=== PATIENT | female | born 1990 | race Caucasian/White ===

== ENCOUNTER 2016-12-13 19:22 | Emergency (ER) | payer BC ==
[~2016-12-13] VITALS: Ht 160 cm; Wt 49.1 kg
[~2016-12-13 19:22] MED LIST: NORCO 325 MG-51 TAB PO
[2016-12-13 19:29] VITALS: BP 135/80; TEMP 99.3
[2016-12-13 20:32] VITALS: PULSE 96
== END 2016-12-13 20:33 | disposition home or self-care (01) ==
LOC: COL.ER 19:22
DX: J20.8 Acute bronchitis due to other specified organisms (principal)

== ENCOUNTER 2024-02-01 18:54 | Emergency (ER) | payer OTHER ==
[~2024-02-01] VITALS: Ht 160 cm; Wt 56.8 kg
[2024-02-01 19:07] VITALS: TEMP 98.3
[2024-02-01] MEDS ORDERED: NS 1,000 ML IV ONE (21:30)
[2024-02-01] MEDS ORDERED: Ondansetron 4 MG/2 ML VIAL IV ONE (21:30)
[2024-02-01] MEDS ORDERED: ZOFRAN ODT4 MG PO (22:28)
[2024-02-01] MEDS ORDERED: Home Promethazine 25 MG #2 TAB/PACK PO ONE (22:30)
[2024-02-01] MEDS ORDERED: Home Ondansetron ODT 4 MG #2 ODT/PACK PO ONE (22:30)
[2024-02-01 22:50] VITALS: BP 118/77; PULSE 72
== END 2024-02-01 22:50 | disposition home or self-care (01) ==
LOC: COL.ER 18:54
DX: O98.811 Other maternal infectious and parasitic diseases complicating pregnancy, first trimester (principal); J10.1 Influenza due to other identified influenza virus with other respiratory manifestations; Z3A.12 12 weeks gestation of pregnancy
CPT/HCPCS: J2405; J7030

== ENCOUNTER 2024-06-09 22:31 | Outpatient (CLI) | payer OTHER ==
[~2024-06-09] VITALS: Ht 160 cm; Wt 70.5 kg
[~2024-06-09 22:31] MED LIST changes: +ZOFRAN ODT4 MG PO
[2024-06-09 23:00] VITALS: BP 117/82; PULSE 85; TEMP 98.1
[2024-06-09] MEDS ORDERED: LR 1,000 ML IV PRN (23:00)
--- NOTE | 2024-06-09 23:15 | NUR ---
DR GARCIA HERE ON THE UNIT. INFORMED OF PT'S COMPLAINTS OF DECREASED MOVEMENT. FEELS LIKE HER PULSE IS FAST. BP IS 117/82, AND 110/73, HR 100 THEN CAME DOWN TO 90 AFTER SHE HEARD THE BABIES HEART RATE. SHE HAS H/O PRE-E, ADHD AND ANXIETY. PT IS VERY ANXIOUS AT THIS TIME BECAUSE SHE IS WORRIED THE BABY IS NOT MOVING. PT TO BED, PLACED MONITORS ON ABD. BABY IS KICKING AND FELT BY THIS NURSE. ASKED PT IF SHE FELT THOSE KICKS, PT SAID NO. FHR 155-160, ACCELS, NO DECELS, PT DENIES FEELING CTX'S. BABY KICKING ON THE MONITOR IS AUDIBLE. AFTER 5 MINS PT STATES SHE CAN FEEL THE BABY KICKING NOW. CXT'S 3-4 MINS. PT DENIES FEELING THEM.
--- NOTE | 2024-06-09 23:50 | NUR ---
PT GIVEN DISCHARGE INSTRUCTIONS WRITTEN AND VERBAL. PT STATES SHE FEELS MUCH BETTER NOW AND HER ANXIETY HAS DECREASED. SHE LEFT THE UNIT AMB OUT PT NOT IN LABOR.
== END 2024-06-09 23:50 | disposition home or self-care (01) ==
LOC: LDRO 22:31 → LDR 22:40 → LDRO 23:50
DX: O36.8130 Decreased fetal movements, third trimester, not applicable or unspecified (principal); Z3A.30 30 weeks gestation of pregnancy
CPT/HCPCS: OP

== ENCOUNTER 2024-07-11 18:01 | Outpatient (CLI) | payer OTHER ==
[~2024-07-11] VITALS: Ht 160 cm; Wt 71.4 kg
--- NOTE | 2024-07-11 18:15 | NUR ---
PT AMBULATORY TO UNIT. REPORTS INCREASED BP AT WORK AND SHMUEL GOMEZ 2-5MIN APART. NO LOF, NO VAGINAL BLEEDING, POSITIVE MOVEMENT. SVE CL/TH/HIGH.
[2024-07-11 18:20] VITALS: BP 130/79; PULSE 101
--- NOTE | 2024-07-11 18:20 | NUR ---
REPORT RECEIVED. PT WAS CHECKED BY DAY NURSE WHO REPORTS CLOSED/THICK/HIGH.
[2024-07-11] MEDS ORDERED: PRENATAL TABLET PO (18:21)
[2024-07-11] MEDS ORDERED: PEPCID 20MG TAB20 MG PO (18:21)
[2024-07-11] MEDS ORDERED: ASPIRIN 81M81 MG/TA2 PO (18:22)
[2024-07-11] MEDS ORDERED: ZOLOFT 50MG50 MG PO (18:22)
[2024-07-11 18:35] VITALS: BP 123/85; PULSE 99
[2024-07-11] MEDS ORDERED: LR 1,000 ML IV PRN (18:45)
[2024-07-11 18:50] VITALS: BP 125/84; PULSE 100
[2024-07-11 19:05] VITALS: BP 133/88; PULSE 99
[2024-07-11 19:10] VITALS: TEMP 98.1
[2024-07-11 19:25] VITALS: BP 121/86; PULSE 106
--- NOTE | 2024-07-11 19:48 | NUR ---
0-REVIEWED ALL DC INSTRUCTIONS WITH PT. ENCOURAGED HER TO CALL HER MD, OB UNIT, OR COME IN IF SHE HAD CTX INCREASING IN FREQUENCY AND INTENSITY, LOF, VAGINAL BLEEDING, DECREASED MOVEMENT. OR CONCERNS ABOUT INCREASING BP, HEADACHES, VISUAL CHANGES. PT VERB UNDERSTANDING, COPIES GIVEN. DISMISSED HOME AMBULATORY.
== END 2024-07-11 19:40 | disposition home or self-care (01) ==
LOC: LDRO 18:01
DX: O47.03 False labor before 37 completed weeks of gestation, third trimester (principal); O16.3 Unspecified maternal hypertension, third trimester; Z3A.35 35 weeks gestation of pregnancy

== ENCOUNTER 2024-08-08 02:26 | Inpatient (IN) | payer OTHER ==
[~2024-08-08] VITALS: Ht 160 cm; Wt 75.0 kg
[2024-08-08] VITALS (31 sets, daily range): BP systolic 117–144; BP diastolic 70–92; PULSE 75–139; TEMP 97.5–98.6
[~2024-08-08 02:26] MED LIST changes: +ASPIRIN 81M81 MG/TA2 PO; +PEPCID 20MG TAB20 MG PO; +PRENATAL TABLET PO; +ZOLOFT 50MG50 MG PO
--- NOTE | 2024-08-08 02:35 | NUR ---
PT TO UNIT AMBUALTORY WITH SPOUSE WITH COMPLAINTS OF CTX AND POSSIBLE SROM. PT IS A G4L2 AT 39.0 WKS. PT ORIENTED TO ROOM, CHANGED INTO GOWN. DENIES VAGINAL BLEEDING, STATES THAT SHE FEELS LIKE SHE IS CONSTANTLY "PEEING" DOWN HER LEGS. STATES GOOD MOVEMENT. EFM X2 APPLIED, AMNIOSWAB X3 NEGATIVE, SVE OF 3-4/60/-3. VS OBTAINED. WILL CONTINUE TO MONITOR.
[2024-08-08] MEDS ORDERED: LR 1,000 ML IV PRN (04:30)
[2024-08-08] MEDS ORDERED: LR 1,000 ML IV SCH (04:30)
[2024-08-08] MEDS ORDERED: LR & Oxytocin 500 ML IV SCH ×2 (04:30→10:00)
[2024-08-08 04:48] LABS: BASO % 0.4 % (0.0-2.0); EOS # 0.1 K/mm3 (0.0-0.7); GRAN # 8.2 K/mm3 (1.4-6.5); GRAN % 72.3 % (42.2-75.2); HEMATOCRIT 38.9 % (37.0-47.0); HEMOGLOBIN 12.9 g/dl (12.5-16.0); LYMPH # 1.9 K/mm3 (1.2-3.4); LYMPH % 16.5 % (20.0-51.0); MEAN CELL VOLUME 90 fl (80.0-100.0); MEAN CORPUSCULAR HEMOGLOBIN 30 pg (27-31); MEAN CORPUSCULAR HGB CONC 33 g/dl (33.0-37.0); MEAN PLATELET VOLUME 10.3 fl (7.4-10.4); MONO % 8.7 % (1.7-9.3); PLATELET COUNT 225 K/mm3 (130-400); RED BLOOD COUNT 4.31 M/mm3 (4.10-5.30); REDCELL DISTRIBUTION WIDTH-CV 12.9 % (11.5-14.5)
[2024-08-08] MEDS ORDERED: ROPivacaine PF 0.2% 200 ML IV ONE (04:57)
[2024-08-08] MEDS ORDERED: diphenhydrAMINE 50 MG/ML 1 ML VIAL IV PRN (05:00)
[2024-08-08] MEDS ORDERED: Ondansetron 4 MG/2 ML VIAL IV PRN (05:00)
[2024-08-08] MEDS ORDERED: Naloxone 0.4 MG/ML VIAL IV PRN ×2 (05:00→10:15)
[2024-08-08] MEDS ORDERED: ePHEDrine 50 MG/10 ML VIAL IV PRN (05:00)
[2024-08-08] MEDS ORDERED: diphenhydrAMINE 25 MG CAP PO PRN (05:00)
--- NOTE | 2024-08-08 05:00 | NUR ---
0445- PT ASSISTED TO SITTING AT SIDE OF BED FOR EPIDURAL PLACEMENT, Albin DOZIER CRNA IN ROOM. RISKS AND BENEFITS DISCUSSED, PT AGREES TO EPIDURAL PLACEMENT. PULSE OX IN PLACE, BP SET TO EVERY 5 MINUTES. 0451- SINGLE SHOT GIVEN BY Albin HAYWARD CRNA, PT TOLERATED WELL. 0458- PT REPOSITIONED TO SEMIFOWLERS FOLLOWING EPIDURAL. PT STATES THAT SHE ALREADY FEELING SOME RELIEF DURING CONTRACTIONS.
[2024-08-08 05:03] LABS: ALBUMIN 2.9 g/dL (3.5-5.0); BILIRUBIN,TOTAL 0.4 mg/dL (0.2-1.2); CALCIUM 9.4 mg/dL (8.4-10.2); CREATININE, serum 0.63 mg/dL (0.57-1.11); POTASSIUM 4.1 mEq/L (3.5-4.5); TOTAL PROTEIN 6.1 g/dl (6.2-8.1)
[2024-08-08] MEDS ORDERED: PROTONIX20 MG PO (05:55)
[2024-08-08] MEDS ORDERED: TYLENOL PM EXTR1 TA1 PO (05:56)
[2024-08-08] MEDS ORDERED: STOOL SOFTENER100 M2 PO (05:57)
--- NOTE | 2024-08-08 06:33 | NUR ---
RN AT BEDSIDE, PT SLEEPING. LR CHECKED, WHITE BOARD UPDATED.
--- NOTE | 2024-08-08 08:00 | NUR ---
AT BEDSIDE FOR SVE /0. PT REPORTS SROM AT 0750, LARGE AMOUNT OF CLEAR FLUID NOTED ON PAD. PT COMFORTABLE, EFM CAT 1, VS STABLE.
--- NOTE | 2024-08-08 08:35 | NUR ---
SVE BY RN, AL/90/0. PT DID PRACTICE PUSH AND CERVIX WAS NOT REDUCABLE. VS STABLE, EFM CAT 1.
--- NOTE | 2024-08-08 09:47 | NUR ---
0910 SVE BY /+1. NOTIFIED NSY AND CHARGE. ROOM SET FOR DELIVERY. 0947 OF VIABLE FEMALE INFANT PER . LOOSE NC X1. INFANT PLACED ON MATERNAL ABDOMEN AND CARE ASSUMED BY MITCHELL OSEGUERA. 0953 OF PLACENTA PER . LOCHIA WNL, FUNDUS FIRM AT U. VS STABLE. INTERMITTENT CATHETER USED BY , REPAIR OF 1ST DEGREE LACERATION COMPLETE. ROOM PUT BACK TOGETHER, PT COMFORTABLE IN BED. ICE PACK PAD PLACED. PT COMFORTABLE.
[2024-08-08] MEDS ORDERED: Mag/Al Hydrox/Simeth Susp 30 ML CUP PO PRN (10:15)
[2024-08-08] MEDS ORDERED: Magnes Hydrox (MOM) 80 MG/ML 30 ML CUP PO PRN (10:15)
[2024-08-08] MEDS ORDERED: Loratadine 10 MG TAB PO PRN (10:15)
[2024-08-08] MEDS ORDERED: oxyCODONE 5 MG TAB PO PRN (10:15)
[2024-08-08] MEDS ORDERED: Phenylephrine/Mineral Oil/Petrolatum 57 GM TUBE RC PRN (10:15)
[2024-08-08] MEDS ORDERED: Measles/Mumps/Rubella Virus Vaccine Live w Diluent 0.5 ML VIAL SQ SCH (10:15)
[2024-08-08] MEDS ORDERED: Witch Hazel 50% Pads Bulk TUB TP PRN (10:15)
[2024-08-08] MEDS ORDERED: Ibuprofen 600 MG TAB PO SCH (10:30)
[2024-08-08] MEDS ORDERED: Acetaminophen 500 MG TAB PO SCH (10:30)
--- NOTE | 2024-08-08 13:00 | NUR ---
THIS RN AT BEDSIDE WITH OUMAR TO ASSISTING PATIENT TO ROOM. PATIENT ASSISTED TO DANGLE, EPIDURAL CATHETER DISCONTINUED BY OUMAR. PATIENT ASSISTED TO STAND AND PATIENT DOES NOT FEEL DIZZY OR LIGHT HEADED. PATIENT AMBULATORY TO RESTROOM WITH RN AT SIDE. PATIENT PERFORMS PERICARE AND CLEAN GOWN AND UNDERWEAR PLACED. PATIENT AMBULATES TO ROOM 214 AND IS ORIENTED TO ROOM. PATIENT ASSISTED TO BED AND PLAN OF CARE DISCUSSED.
--- NOTE | 2024-08-08 13:15 | NUR ---
Pt ambulates to bathroom with this RN standby assist. Voided 50mls, encouraged to void again within the hour, if unable to void at that time, needs straight cathed. Pt verbalized understanding. Pericare completed and explained. New gown on, Pt ambulates to PP room. Oriented to room.
--- NOTE | 2024-08-08 13:25 | NUR ---
REPORT GIVEN TO ROSARN
[2024-08-08] MEDS ORDERED: Sennosides/Docusate 8.6-50 MG TAB PO SCH (17:00)
[2024-08-08] MEDS ORDERED: traZODone 50 MG TAB PO PRN (21:00)
[2024-08-09 00:01] VITALS: BP 120/79; PULSE 70; TEMP 98.1
[2024-08-09 04:20] VITALS: BP 132/78; PULSE 81; TEMP 98.1
[2024-08-09 07:40] VITALS: BP 135/94; PULSE 86; TEMP 97.4
[2024-08-09] MEDS ORDERED: MOTRIN 600600 MG/TAB PO (08:47)
[2024-08-09] MEDS ORDERED: Influenza Virus Vaccine, Trivalent '24-25 0.5 ML SYRINGE IM SCH (09:00)
[2024-08-09 09:04] VITALS: BP 129/97; PULSE 85
[2024-08-09 13:00] VITALS: BP 135/98; PULSE 93; TEMP 97.9
== END 2024-08-09 13:20 | disposition home or self-care (01) | DRG 807 ==
LOC: LDRO 02:26 → LDR 04:27 → OB 13:00
PROVIDERS: Obstetrics & Gynecology; ADMIT Obstetrics & Gynecology
PROC: 10E0XZZ Delivery of Products of Conception, External Approach (ICD-10-PCS; principal; 2024-08-08)
PROC: 0HQ9XZZ Repair Perineum Skin, External Approach (ICD-10-PCS; 2024-08-08)
DX: O13.4 Gestational [pregnancy-induced] hypertension without significant proteinuria, complicating childbirth (principal); Z37.0 Single live birth; Z3A.39 39 weeks gestation of pregnancy; O99.344 Other mental disorders complicating childbirth; F41.9 Anxiety disorder, unspecified; K21.9 Gastro-esophageal reflux disease without esophagitis; O99.613 Diseases of the digestive system complicating pregnancy, third trimester; O70.0 First degree perineal laceration during delivery
CPT/HCPCS: J2590; J2795; J7120